=== PATIENT | male | born 1955 | race Caucasian/White ===

== ENCOUNTER 2023-12-07 11:37 | Outpatient (CLI) | payer MEDICARE, MEDICAID | END 2023-12-07 23:59 | disposition home or self-care (01) | LOC: RAD 11:37 | PROVIDERS: ATTEND Nurse Practitioner Family | DX: M16.0 Bilateral primary osteoarthritis of hip (principal); G57.93 Unspecified mononeuropathy of bilateral lower limbs; M25.851 Other specified joint disorders, right hip; M25.852 Other specified joint disorders, left hip; M25.752 Osteophyte, left hip; M25.751 Osteophyte, right hip; M47.817 Spondylosis without myelopathy or radiculopathy, lumbosacral region; M25.551 Pain in right hip; M25.552 Pain in left hip | CPT/HCPCS: 72110; 73522 ==

== ENCOUNTER → 2023-12-07 | Outpatient (CLI) | payer MEDICARE, MEDICAID ==
[~2023-12-07] MED LIST: CARV-49 PO; FENO145T25 PO; LISI10TA27 PO; METF-900 PO; NITR0.4T48 SL
== END | disposition home or self-care (01) ==
LOC: VAS 08:00
PROVIDERS: ATTEND Nurse Practitioner Family
DX: G57.93 Unspecified mononeuropathy of bilateral lower limbs (principal)
CPT/HCPCS: 93880; 93970

== ENCOUNTER 2024-02-22 12:30 | Outpatient (CLI) | payer MEDICARE, MEDICAID | END 2024-02-22 23:59 | disposition home or self-care (01) | LOC: MRI 12:30 | PROVIDERS: ATTEND Nurse Practitioner Family | DX: M47.817 Spondylosis without myelopathy or radiculopathy, lumbosacral region (principal); M25.852 Other specified joint disorders, left hip; M48.07 Spinal stenosis, lumbosacral region; M51.370 Other intervertebral disc degeneration, lumbosacral region with discogenic back pain only; M25.551 Pain in right hip; G57.93 Unspecified mononeuropathy of bilateral lower limbs; M25.552 Pain in left hip; M16.0 Bilateral primary osteoarthritis of hip; R29.898 Other symptoms and signs involving the musculoskeletal system | CPT/HCPCS: 72148; 73721 ==

== ENCOUNTER 2025-01-12 01:47 | Emergency (ER) | payer MEDICARE, MEDICAID ==
[~2025-01-12] VITALS: Ht 172.7 cm; Wt 110.2 kg
[2025-01-12 01:48] VITALS: TEMP 97.5
--- NOTE | 2025-01-12 02:10 | Physician Documentation ---
History of Present Illness ~ Chief Complaint: Vomiting Stated Complaint: NAUSEA/VOMITING A ALS Time Seen by MD: 02:04 Primary Medical Doctor: [facility] Mode of Arrival: EMS, Stretcher HPI Patient presents to the emergency room with nausea vomiting diarrhea onset 2 hours prior to arrival. No questionable foods. He did receive antiemetics in route in his nausea has improved but persists. Denies abdominal pain and chest pain Medication Reconciliation Allergies: Coded Allergies: No Known Allergies (Unverified , 01/12/25) Scheduled Carvedilol (Coreg), 1 TAB PO Q12H Fenofibrate Nanocrystallized (Fenofibrate), 145 MG PO DAILY Lisinopril (Lisinopril), 10 MG PO DAILY Metformin Hcl* (Metformin ER*), 3 TAB PO DAILY, (Reported) Scheduled PRN Nitroglycerin (Nitroglycerin), 0.4 MG SL Q5MIN PRN for chest pain Past Medical History Past Medical History: Hypertension, *GI/HEPATOBILIARY*, Diabetes Past Surgical History: colectomy Alcohol Use: Occasionally Drug Use: none Lives In: Home Occupation: employed Review of Systems ROS All review of systems negative except as per HPI Physical Exam Vital Signs: Temperature: 97.5, Heart Rate: 65, Respiratory Rate: 16, BP: 188/77, Pulse Oximetry: 100, Weight: 110.200 Oxygen Flow Rate: 0 Physical Exam General: Patient is awake, alert, oriented x4 in no acute distress Head: Normocephalic and atraumatic. Eyes: Conjunctival normal. EOMI. PERRL. ENT: Mucous membranes moist. Neck: Supple, trachea is midline. Chest: Clear to auscultation bilaterally without rales, rhonchi, or wheezes. There is no accessory muscle use or retractions. Cardiac: RRR without murmurs, gallops, or rubs. Abd: Soft, nondistended, nontender, with normoactive bowel sounds. No guarding, rebound, or rigidity. Progress Progress Note Patient has been gaining to feel better. Noted elevation of lipase however patient denies any abdominal pain. Results/Orders Results/Orders Completed Orders - ANTONIO DELANEY MD Cbc/Diff (01/12/25 01:53) BMP (01/12/25 01:53) Lipase (01/12/25 01:53) CMP (01/12/25 01:53) Hs Troponin I W Calculations (01/12/25 02:05) Normal Saline 1000ml (0.9% Sodium Chlori (01/12/25 02:05) Metoclopramide Inj (Reglan Inj) (01/12/25 02:10) Diphenhydramine Inj (Benadryl Inj.) (01/12/25 02:10) Ua W/Microscopic, Cult If Ind (01/12/25 02:44) Prochlorperazine Inj (Compazine Inj) (01/12/25 03:50) Medications Received in ER Medications (Trade) Dose Ordered Sig/Slime Route PRN Reason Start Time Stop Time Status Last Admin Dose Admin Sodium Chloride 1,000 ml @ 1,000 mls/hr ONCE ONCE IV 01/12/25 02:05 01/12/25 03:04 DC 01/12/25 02:19 1,000 MLS/HR (Reglan inj) 10 mg ONCE ONCE IV 01/12/25 02:10 01/12/25 02:11 DC 01/12/25 02:19 10 MG (Benadryl inj.) 25 mg ONCE ONCE IV 01/12/25 02:10 01/12/25 02:11 DC 01/12/25 02:19 25 MG (Compazine inj) 5 mg ONCE ONCE IV 01/12/25 03:50 01/12/25 03:51 DC 01/12/25 03:55 5 MG Vital Signs 01/12/25 01/12/25 01/12/25 01/12/25 01:48 01:55 02:01 03:15 Temp 97.5 Pulse 65 65 76 Resp 16 16 16 16 B/P (MAP) 143/65 188/77 (114) 160/81 (107) Pulse Ox 99 100 96 O2 Flow Rate 0 0 0 01/12/25 01/12/25 03:58 04:35 Pulse 71 77 Resp 16 16 B/P (MAP) 163/79 (107) 153/63 (93) Pulse Ox 99 97 O2 Flow Rate 0 0 Laboratory Tests Test 01/12/25 02:07 01/12/25 02:44 White Blood Count 14.8 H Red Blood Count 5.15 Hemoglobin 16.2 Hematocrit 48.0 Mean Corpuscular Volume 93.1 Mean Corpuscular Hemoglobin 31.5 H Mean Corpuscular Hemoglobin Concent 33.8 Red Cell Distribution Width 14.7 H Platelet Count 238 Mean Platelet Volume 8.1 Neutrophils (%) (Auto) 83.1 H Lymphocytes (%) (Auto) 9.8 L Monocytes (%) (Auto) 5.9 Eosinophils (%) (Auto) 0.8 Basophils (%) (Auto) 0.4 Neutrophils # (Auto) 12.3 H Lymphocytes # (Auto) 1.4 Monocytes # (Auto) 0.9 Eosinophils # (Auto) 0.1 Basophils # (Auto) 0.1 CBC Comment Sodium Level 142 Potassium Level 4.0 Chloride Level 107 Carbon Dioxide Level 22.0 L Anion Gap 13 Blood Urea Nitrogen 28 H Creatinine 1.40 H Estimated GFR/1.73 m2 50 BUN/Creatinine Ratio 20.0 Glucose Level 185 H Calcium Level 9.8 Total Bilirubin 1.0 Aspartate Amino Transf (AST/SGOT) 42 H Alanine Aminotransferase (ALT/SGPT) 48 Alkaline Phosphatase 103 Troponin I High Sensitivity 6 Total Protein 8.5 H Albumin 4.0 Globulin 4.5 H Albumin/Globulin Ratio 0.9 L Lipase 203 H Chemistry Comments Urine Specimen Description Voided Urine Color Buffy Urine Clarity Clear Urine pH 5.5 Urine Specific [place] >=1.030 Urine Protein 100 H Urine Glucose (UA) 250 H Urine Ketones 15 H Urine Occult Blood Negative Urine Nitrite Negative Urine Bilirubin Small Urine Urobilinogen 0.2 Urine Leukocyte Esterase Negative Urine RBC 0-2 Urine WBC 0-4 Urine Squamous Epithelial Cells Few Urine Uric Acid Crystals 2+ Urine Bacteria None seen Urine Hyaline Casts 3-5 Urine Mucus Many Urine Culture Indicated Not ind Volume Urine Centrifuged 10 ml Urine Comment Medical Decision Making Findings Patient presents to the emergency room with vomiting and diarrhea. Differ entials include but are not limited to gastroenteritis, small-bowel obstruction, dehydration, ACS therefore emergent labs ordered. Patient does have an elevated lipase however he denies any abdominal pain and I believe that has may be factitious related to his significant gastroenteritis that has occurring. No pain on palpation not feel patient requires a CT scan. He is responding to treatment. ER precautions discussed. Noted leukocytosis however he had not feel that represents infectious process but rather stress response. Departure Disposition: HOME / SELF CARE / HOMELESS Impression: Primary Impression: Acute gastroenteritis Condition: Improved Discharge Instructions: Nausea and Vomiting, Adult Referrals: NO PRIMARY CARE PROVIDER (PCP) Prescriptions Ondansetron 8mg ODT (Ondansetron Odt) 8 Mg Tab.rapdis 1 TAB PO Q6H for nausea/vomiting for 3 Days, #12 TAB 0 Refills Prov: ANTONIO DELANEY MD 01/12/25 Education Educated: Patient Educated regarding: diagnosis, treatment, need for follow up Signature Scribe Signature: No scribe Attestation: The note accurately reflects work and decisions made by me.Antonio Delaney MD 01/12/25 05:01 ANTONIO DELANEY MD Jan 12, 2025 02:10
[2025-01-12 02:14] LABS: MEAN PLATELET VOLUME 8.1 FL (7.4-10.4); RED CELL DISTRIBUTION WIDTH 14.7 % (11.5-14.5)
[2025-01-12] MEDS: normal saline 1000ml 1,000 ML IV ONE (02:19)
[2025-01-12] MEDS: metoclopramide 5 mg/ml inj IV ONE (02:19)
[2025-01-12 02:31] LABS: CREATININE 1.40 MG/DL (0.60-1.10); TOTAL CARBON DIOXIDE 22.0 MMOL/L (24-32); eCRCL 48 ML/MIN; eGFR 50 ML/MIN
[2025-01-12 02:51] LABS: LEUKOCYTE ESTERASE ,URINE NEGATIVE (Neg); NITRITES, URINE NEGATIVE (Neg); OCCULT BLOOD,URINE NEGATIVE (Neg)
[2025-01-12 02:53] LABS: UA COLLECTION TYPE VOIDED
[2025-01-12 02:56] LABS: MUCUS STRANDS MANY /LPF (Neg); SQUAMOUS EPITHELIAL CELL,UR FEW /LPF (FEW)
[2025-01-12 02:58] LABS: URIC ACID CRYSTALS 2+ /HPF (NEGATIVE)
[2025-01-12 05:01] VITALS: BP 165/79; PULSE 70; RESP 16; O2SAT 99
[2025-01-12] MEDS ORDERED: ONDA-245 PO (05:01)
== END 2025-01-12 08:42 | disposition home or self-care (01) ==
LOC: ER 01:48
DX: K52.9 Noninfective gastroenteritis and colitis, unspecified (principal); I10 Essential (primary) hypertension; E11.9 Type 2 diabetes mellitus without complications; Z90.49 Acquired absence of other specified parts of digestive tract; Z79.84 Long term (current) use of oral hypoglycemic drugs; Z79.899 Other long term (current) drug therapy; Z72.89 Other problems related to lifestyle
CPT/HCPCS: 36415; 80053; 81001; 83690; 84484; 85025; 96361; 96374; 96375; 99285; J0780; J1200; J2765; J7030